=== PATIENT | female | born 1985 | race Caucasian/White ===

== ENCOUNTER 2017-08-13 06:37 | Inpatient (IN) | payer OTHER ==
[2017-08-13] MEDS: LACTATED RINGER'S 1000 ML IV (07:39)
[2017-08-13 08:17] LABS: HEMATOCRIT 36.8 % (36.0-47.0); HEMOGLOBIN 11.9 g/dl (12.0-15.5); MEAN CORPUSCULAR HEMOGLOBIN 28.3 pg (27.0-33.0); MEAN CORPUSCULAR HGB CONC 32.3 g/dl (32.0-36.5); MEAN CORPUSCULAR VOLUME 87.4 fl (80.0-96.0); PLATELET COUNT, AUTOMATED 176 10^3/uL (150-450); RED BLOOD COUNT 4.21 10^6/uL (4.00-5.40); WHITE BLOOD COUNT 10.2 10^3/uL (4.0-10.0)
[2017-08-13] MEDS: miSOPROStol 50 MCG 1/2 TAB (S0191) PO ×4 (08:25→21:00)
[2017-08-13] MEDS: LR 1,000 ML IV ×3 (09:25→23:21)
[2017-08-14] MEDS: miSOPROStol 50 MCG 1/2 TAB (S0191) PO ×6 (01:00→21:00)
[2017-08-14] MEDS ORDERED: LR 1,000 ML IV (06:44)
[2017-08-14] MEDS: LR 1,000 ML IV ×3 (07:21→23:57)
[2017-08-14] MEDS ORDERED: FENTANYL 2MCG/ML ROPIVACAINE 0.2% IN 0.9% NACL 200ML IVBAG As Ordered (07:26)
[2017-08-14] MEDS: ePHEDrine SULFATE 25 MG/5 ML(5MG/ML) SYRINGE IV (08:13)
[2017-08-14] MEDS ORDERED: ONDANSETRON 4MG/2ML VIAL (J2405) IV ×2 (08:15→19:30)
[2017-08-14] MEDS ORDERED: EPIDURAL COMMENT XX (08:15)
[2017-08-14] MEDS ORDERED: diphenhydrAMINE INJ 50MG/ML VIAL (J1200) IV (08:15)
[2017-08-14] MEDS ORDERED: EPIDURAL/PCA KEYS XX (08:15)
[2017-08-14] MEDS: FENTANYL/ROPIVACAINE/NACL BAG 200 ML EPIDURAL (08:15)
[2017-08-14] MEDS ORDERED: NALOXONE INJ 0.4 MG/1 ML VIAL (J2310) IV (08:15)
[2017-08-14] MEDS ORDERED: REFRIGERATOR IV KEYS XX (08:15)
[2017-08-14] MEDS: OXYTOCIN DRIP 30 UNITS in APPROPRIATE DILUENT 1 EA IV (09:01)
[2017-08-14] MEDS ORDERED: BICITRA 30ML SOLN UDC As Ordered (16:58)
[2017-08-14] MEDS ORDERED: ceFAZolin 2 GM/D5W 50 ML IV BAG (J0690 PER 500MG) As Ordered (16:58)
[2017-08-14] MEDS: BICITRA 30ML SOLN UDC PO (17:00)
[2017-08-14] MEDS ORDERED: ONDANSETRON 4MG/2ML VIAL (J2405) As Ordered (17:30)
[2017-08-14] MEDS ORDERED: dexameTHASONE 4 MG/ML 1ML VIAL (J1100) As Ordered (17:30)
[2017-08-14] MEDS ORDERED: fentaNYL 100 MCG/2 ML INJECTION (J3010) As Ordered (17:52)
[2017-08-14] MEDS ORDERED: MORPHINE PRES-FREE INJ 10 MG/10 ML VIAL (J2274) As Ordered (17:53)
[2017-08-14 18:16] LABS: CORD GAS ABE V -5.7; CORD GAS HCO3 V 21.7 MEQ/L; CORD GAS O2 SAT V 53.9 %; CORD GAS PCO2 V 49.4 mmHg; CORD GAS PH V 7.261 UNITS; CORD GAS PO2 V 26.4 mmHg; CORD GAS SBC V 18.8 MEQ/L; CORD GAS TCO2 V 23.2 MEQ/L
[2017-08-14 18:17] LABS: CORD GAS HCO3 A 24.4 MEQ/L; CORD GAS O2 SAT A 26.9 %; CORD GAS PCO2 A 52.7 mmHg; CORD GAS PH A 7.284 UNITS; CORD GAS PO2 A 16.3 mmHg; CORD GAS SBC A 20.2 MEQ/L
[2017-08-14] MEDS ORDERED: KETOROLAC 60 MG/2 ML VIAL (J1885) As Ordered (18:21)
[2017-08-14] MEDS ORDERED: PERCOCET 5MG/325MG TAB PO (19:00)
[2017-08-14] MEDS ORDERED: OXYTOCIN INJ 10 UNITS/ML VIAL (J2590) As Ordered (19:03)
[2017-08-14] MEDS ORDERED: fentaNYL 100 MCG/2 ML INJECTION (J3010) IV (19:30)
[2017-08-14] MEDS ORDERED: NALBUPHINE HCL 10 MG/ML AMP (J2300) IV (19:30)
[2017-08-14] MEDS ORDERED: PERCOCET 5MG/325MG TAB As Ordered (19:46)
[2017-08-14] MEDS: DOCUSATE SODIUM 100 MG CAP PO (21:36)
[2017-08-15] MEDS: LR 1,000 ML IV ×4 (00:03→11:15)
[2017-08-15] MEDS: KETOROLAC 30 MG/ML VIAL (J1885) IV ×4 (00:39→19:52)
[2017-08-15] MEDS: miSOPROStol 50 MCG 1/2 TAB (S0191) PO ×3 (00:40→09:00)
[2017-08-15] MEDS: FENTANYL/ROPIVACAINE/NACL BAG 200 ML EPIDURAL (03:00)
[2017-08-15 06:36] LABS: HEMOGLOBIN 10.3 g/dl (12.0-15.5); MEAN CORPUSCULAR HEMOGLOBIN 28.6 pg (27.0-33.0); MEAN CORPUSCULAR HGB CONC 33.2 g/dl (32.0-36.5); MEAN CORPUSCULAR VOLUME 86.1 fl (80.0-96.0); PLATELET COUNT, AUTOMATED 179 10^3/uL (150-450); RED CELL DISTRIBUTION WIDTH 15.9 % (11.5-14.5); WHITE BLOOD COUNT 20.1 10^3/uL (4.0-10.0)
[2017-08-15] MEDS: DOCUSATE SODIUM 100 MG CAP PO ×2 (10:00→19:52)
[2017-08-15] MEDS: PRENATAL VITAMINS CHEWABLE TABLET PO (10:00)
[2017-08-15] MEDS ORDERED: LR 500 ML IV (11:15)
[2017-08-16] MEDS: IBUPROFEN 800 MG TAB PO ×2 (03:00→11:38)
[2017-08-16] MEDS: MEASLES,MUMPS,RUBELLA VACCINE INJ (MMR-II) (90707) SC (07:21)
[2017-08-16] MEDS: RHOGAM 300 MCG (1500 IU) INJ (J2790) IM (07:21)
[2017-08-16] MEDS: PRENATAL VITAMINS CHEWABLE TABLET PO (07:45)
[2017-08-16] MEDS: DOCUSATE SODIUM 100 MG CAP PO (07:45)
[2017-08-16] MEDS: PERCOCET 5MG/325MG TAB PO (07:46)
== END 2017-08-16 16:00 | disposition home or self-care (01) | DRG 766 ==
LOC: M LDI 06:37 → M OBS 08-14 20:47
PROVIDERS: Obstetrics & Gynecology
PROC: 10D00Z1 Extraction of Products of Conception, Low, Open Approach (ICD-10-PCS; principal; 2017-08-14 17:20)
PROC: 3E0P7VZ Introduction of Hormone into Female Reproductive, Via Natural or Artificial Opening (ICD-10-PCS; 2017-08-14 17:20)
DX: O48.0 Post-term pregnancy (principal); Z37.0 Single live birth; Z3A.41 41 weeks gestation of pregnancy; O32.4XX0 Maternal care for high head at term, not applicable or unspecified; E03.9 Hypothyroidism, unspecified; O99.284 Endocrine, nutritional and metabolic diseases complicating childbirth; E66.9 Obesity, unspecified; O99.214 Obesity complicating childbirth

== ENCOUNTER 2017-08-20 12:12 | Emergency (ER) | payer OTHER ==
[2017-08-20] MEDS: NS 1,000 ML IV (14:34)
[2017-08-20 14:36] LABS: BASO % 0.2 % (0.0-1.0); EOS # 0.4 10^3/uL (0.0-0.50); EOS % 3.8 % (0.0-3.0); HEMATOCRIT 30.9 % (36.0-47.0); HEMOGLOBIN 10.1 g/dl (12.0-15.5); IMMATURE GRANULOCYTE % 1.7 % (0-3.0); LYMPH # 1.6 10^3/uL (1.5-4.5); LYMPH % 17.7 % (24.0-44.0); MEAN CORPUSCULAR HEMOGLOBIN 28.4 pg (27.0-33.0); MEAN CORPUSCULAR HGB CONC 32.7 g/dl (32.0-36.5); MEAN CORPUSCULAR VOLUME 86.8 fl (80.0-96.0); MONO # 0.7 10^3/uL (0.0-0.8); MONO % 7.5 % (0.0-5.0); NEUTROPHILS # 6.4 10^3/uL (1.8-7.7); NEUTROPHILS % 69.1 % (36.0-66.0); PLATELET COUNT, AUTOMATED 317 10^3/uL (150-450); RED BLOOD COUNT 3.56 10^6/uL (4.00-5.40); WHITE BLOOD COUNT 9.3 10^3/uL (4.0-10.0)
[2017-08-20] MEDS: GASTROGRAFIN SOLUTION 30ML PO ×2 (14:45→15:42)
[2017-08-20 15:00] LABS: ALBUMIN 2.3 GM/DL (3.2-5.2); ALBUMIN/GLOBULIN RATIO 0.59 (1.00-1.93); ALKALINE PHOSPHATASE 103 U/L (45-117); ALT/SGPT 52 U/L (12-78); ANION GAP 9 MEQ/L (8-16); AST/SGOT 17 U/L (7-37); BILIRUBIN,DIRECT 0.2 MG/DL (0.0-0.2); BILIRUBIN,TOTAL 0.4 MG/DL (0.2-1.0); BLOOD UREA NITROGEN 9 MG/DL (7-18); CALCIUM LEVEL 8.4 MG/DL (8.5-10.1); CARBON DIOXIDE LEVEL 23 MEQ/L (21-32); CHLORIDE LEVEL 111 MEQ/L (98-107); CREATININE FOR GFR 0.69 MG/DL (0.55-1.30); GLOMERULAR FILTRATION RATE > 60.0 (>60); GLUCOSE, FASTING 66 MG/DL (70-100); SODIUM LEVEL 143 MEQ/L (136-145); TOTAL PROTEIN 6.2 GM/DL (6.4-8.2)
[2017-08-20 15:01] LABS: LACTIC ACID SEPSIS PROTOCOL 0.6 MMOL/L (0.4-2.0)
[2017-08-20 15:02] LABS: KETONE, URINE AUTO RFX NEGATIVE (NEGATIVE); NITRITE, URINE AUTO RFX NEGATIVE (NEGATIVE); RBC, URINE AUTO RFX 1 /HPF (0-3); SPECIFIC GRAVITY UR AUTO RFX 1.005 (1.002-1.035); SQUAM EPITHELIAL CELL UR AURFX 1 /HPF (0-6)
[2017-08-20 15:06] LABS: LEUKOCYTE ESTERASE UR AUTO RFX 1+ (NEGATIVE); WBC, URINE AUTO RFX 12 /HPF (0-3)
[2017-08-20] MEDS: CEPHALEXIN 500 MG CAP PO (17:15)
== END 2017-08-20 17:29 | disposition home or self-care (01) ==
LOC: M ED 12:12
DX: O98.83 Other maternal infectious and parasitic diseases complicating the puerperium (principal); N30.00 Acute cystitis without hematuria; O99.285 Endocrine, nutritional and metabolic diseases complicating the puerperium; E07.9 Disorder of thyroid, unspecified; Z91.048 Other nonmedicinal substance allergy status; Z79.899 Other long term (current) drug therapy
CPT/HCPCS: 76856

== ENCOUNTER 2017-08-25 14:09 | Inpatient (IN) | payer OTHER ==
[2017-08-24] MEDS: LR 1,000 ML IV (23:30)
[2017-08-25] MEDS: PRENATAL VITAMINS CHEWABLE TABLET PO (09:00)
[2017-08-25] MEDS: LACTATED RINGER'S 1000 ML IV (15:15)
[2017-08-25 15:54] LABS: HEMATOCRIT 30.2 % (36.0-47.0); HEMOGLOBIN 9.8 g/dl (12.0-15.5); MEAN CORPUSCULAR HEMOGLOBIN 27.7 pg (27.0-33.0); MEAN CORPUSCULAR HGB CONC 32.5 g/dl (32.0-36.5); MEAN CORPUSCULAR VOLUME 85.3 fl (80.0-96.0); PLATELET COUNT, AUTOMATED 384 10^3/uL (150-450); RED BLOOD COUNT 3.54 10^6/uL (4.00-5.40); RED CELL DISTRIBUTION WIDTH 16.3 % (11.5-14.5); WHITE BLOOD COUNT 14.7 10^3/uL (4.0-10.0)
[2017-08-25 15:57] LABS: ADD MANUAL DIFFER YES; DIFF SLIDE NUMBER 328; POSITIVE MORPH POS FLAG
[2017-08-25] MEDS: ACETAMINOPHEN TAB 650MG DOSE (2X325MG) PO (16:11)
[2017-08-25 16:15] LABS: LACTIC ACID SEPSIS PROTOCOL 1.8 MMOL/L (0.4-2.0)
[2017-08-25 16:18] LABS: BANDS 1 % (< 11); LYMPHOCYTES 9 % (16-52); MONOCYTES 3 % (0-8); NEUTROPHILS 87 % (35-75)
[2017-08-25 16:21] LABS: PLATELET ESTIMATE NORMAL (NORMAL); TOXIC GRANULATION 1+; TOXIC VACUOLATION 1+
[2017-08-25 16:28] LABS: ALBUMIN 2.2 GM/DL (3.2-5.2); ALBUMIN/GLOBULIN RATIO 0.52 (1.00-1.93); ALKALINE PHOSPHATASE 116 U/L (45-117); ALT/SGPT 28 U/L (12-78); ANION GAP 11 MEQ/L (8-16); AST/SGOT 22 U/L (7-37); BILIRUBIN,TOTAL 0.4 MG/DL (0.2-1.0); BLOOD UREA NITROGEN 8 MG/DL (7-18); CARBON DIOXIDE LEVEL 20 MEQ/L (21-32); CHLORIDE LEVEL 104 MEQ/L (98-107); CREATININE FOR GFR 0.82 MG/DL (0.55-1.30); GLOMERULAR FILTRATION RATE > 60.0 (>60); GLUCOSE, FASTING 73 MG/DL (70-100); PHOSPHORUS LEVEL 2.1 MG/DL (2.5-4.9); POTASSIUM SERUM 4.1 MEQ/L (3.5-5.1); SODIUM LEVEL 135 MEQ/L (136-145); TOTAL PROTEIN 6.4 GM/DL (6.4-8.2)
[2017-08-25] MEDS: LR 1,000 ML IV (16:50)
[2017-08-25] MEDS: PIPERACILLIN/TAZOBACTAM SOD 3.375 GM in D5W MINI-BAG PLUS 50 ML IV ×2 (16:50→21:42)
[2017-08-25] MEDS: VANCOMYCIN HCL 1,000 MG, VIAL MATE ADAPTER 1 EACH in D5W 250 ML IV ×2 (18:01→19:53)
[2017-08-25] MEDS: IBUPROFEN 800 MG TAB PO (21:31)
[2017-08-25] MEDS: LANOLIN HYDROUS OINT 30GM TUBE TOP (21:31)
[2017-08-26] MEDS: PIPERACILLIN/TAZOBACTAM SOD 3.375 GM in D5W MINI-BAG PLUS 50 ML IV ×3 (03:05→22:00)
[2017-08-26] MEDS: VANCOMYCIN HCL 1,000 MG, VIAL MATE ADAPTER 1 EACH in D5W 250 ML IV ×4 (04:00→22:00)
[2017-08-26 06:59] LABS: HEMATOCRIT 27.8 % (36.0-47.0); HEMOGLOBIN 9.3 g/dl (12.0-15.5); MEAN CORPUSCULAR HEMOGLOBIN 27.9 pg (27.0-33.0); MEAN CORPUSCULAR HGB CONC 33.5 g/dl (32.0-36.5); MEAN CORPUSCULAR VOLUME 83.5 fl (80.0-96.0); PLATELET COUNT, AUTOMATED 383 10^3/uL (150-450); RED BLOOD COUNT 3.33 10^6/uL (4.00-5.40); RED CELL DISTRIBUTION WIDTH 16.7 % (11.5-14.5); WHITE BLOOD COUNT 10.6 10^3/uL (4.0-10.0)
[2017-08-26] MEDS: PRENATAL VITAMINS CHEWABLE TABLET PO (09:05)
[2017-08-26] MEDS: LANOLIN HYDROUS OINT 30GM TUBE TOP ×3 (09:06→22:00)
[2017-08-26] MEDS: IBUPROFEN 800 MG TAB PO (10:00)
[2017-08-26] MEDS ORDERED: PIPERACILLIN/TAZOBACTAM SOD 3.375 GM in D5W MINI-BAG PLUS 50 ML IV (11:15)
[2017-08-26] MEDS ORDERED: VANCOMYCIN HCL 2,000 MG, VIAL MATE ADAPTER 1 EACH in D5W 250 ML IV (11:15)
[2017-08-26] MEDS: LR 1,000 ML IV ×2 (22:00)
[2017-08-27] MEDS: PIPERACILLIN/TAZOBACTAM SOD 3.375 GM in D5W MINI-BAG PLUS 50 ML IV ×4 (02:46→22:27)
[2017-08-27] MEDS: VANCOMYCIN HCL 1,000 MG, VIAL MATE ADAPTER 1 EACH in D5W 250 ML IV ×4 (04:24→19:51)
[2017-08-27] MEDS: PRENATAL VITAMINS CHEWABLE TABLET PO (08:48)
[2017-08-27] MEDS: LANOLIN HYDROUS OINT 30GM TUBE TOP ×3 (08:49→22:28)
[2017-08-27] MEDS: LR 1,000 ML IV ×3 (10:57→22:45)
[2017-08-27 11:00] LABS: BASO % 0.5 % (0.0-1.0); EOS # 0.2 10^3/uL (0.0-0.50); EOS % 2.3 % (0.0-3.0); HEMATOCRIT 28.8 % (36.0-47.0); HEMOGLOBIN 9.3 g/dl (12.0-15.5); IMMATURE GRANULOCYTE % 1.5 % (0-3.0); LYMPH # 1.4 10^3/uL (1.5-4.5); LYMPH % 17.2 % (24.0-44.0); MEAN CORPUSCULAR HEMOGLOBIN 27.6 pg (27.0-33.0); MEAN CORPUSCULAR HGB CONC 32.3 g/dl (32.0-36.5); MEAN CORPUSCULAR VOLUME 85.5 fl (80.0-96.0); MONO # 0.5 10^3/uL (0.0-0.8); MONO % 6.2 % (0.0-5.0); NEUTROPHILS # 5.8 10^3/uL (1.8-7.7); NEUTROPHILS % 72.3 % (36.0-66.0); PLATELET COUNT, AUTOMATED 430 10^3/uL (150-450); RED BLOOD COUNT 3.37 10^6/uL (4.00-5.40); RED CELL DISTRIBUTION WIDTH 16.8 % (11.5-14.5)
[2017-08-27 15:59] LABS: VANCOMYCIN LEVEL TROUGH 14.1 UG/ML (10.0-20.0)
[2017-08-27] MEDS: ACETAMINOPHEN TAB 650MG DOSE (2X325MG) PO (17:36)
[2017-08-27] MEDS ORDERED: ISOVUE-370 76% 100ML VIAL (Q9967) As Ordered (21:41)
[2017-08-27 22:07] LABS: HEMATOCRIT 28.1 % (36.0-47.0); HEMOGLOBIN 9.1 g/dl (12.0-15.5); MEAN CORPUSCULAR HEMOGLOBIN 27.5 pg (27.0-33.0); MEAN CORPUSCULAR HGB CONC 32.4 g/dl (32.0-36.5); MEAN CORPUSCULAR VOLUME 84.9 fl (80.0-96.0); PLATELET COUNT, AUTOMATED 497 10^3/uL (150-450); RED BLOOD COUNT 3.31 10^6/uL (4.00-5.40); RED CELL DISTRIBUTION WIDTH 16.7 % (11.5-14.5); WHITE BLOOD COUNT 10.2 10^3/uL (4.0-10.0)
[2017-08-27 22:38] LABS: ALBUMIN 1.7 GM/DL (3.2-5.2); ALBUMIN/GLOBULIN RATIO 0.36 (1.00-1.93); ALKALINE PHOSPHATASE 103 U/L (45-117); ALT/SGPT 52 U/L (12-78); ANION GAP 8 MEQ/L (8-16); AST/SGOT 27 U/L (7-37); BILIRUBIN,TOTAL 0.3 MG/DL (0.2-1.0); BLOOD UREA NITROGEN 8 MG/DL (7-18); CALCIUM LEVEL 7.9 MG/DL (8.5-10.1); CARBON DIOXIDE LEVEL 24 MEQ/L (21-32); CHLORIDE LEVEL 111 MEQ/L (98-107); CREATININE FOR GFR 0.82 MG/DL (0.55-1.30); GLOMERULAR FILTRATION RATE > 60.0 (>60); GLUCOSE, FASTING 124 MG/DL (70-100); POTASSIUM SERUM 3.2 MEQ/L (3.5-5.1); SODIUM LEVEL 143 MEQ/L (136-145); TOTAL PROTEIN 6.4 GM/DL (6.4-8.2)
[2017-08-28] MEDS: PIPERACILLIN/TAZOBACTAM SOD 3.375 GM in D5W MINI-BAG PLUS 50 ML IV ×4 (03:35→20:23)
[2017-08-28] MEDS: VANCOMYCIN HCL 1,000 MG, VIAL MATE ADAPTER 1 EACH in D5W 250 ML IV ×4 (04:40→18:20)
[2017-08-28] MEDS: LANOLIN HYDROUS OINT 30GM TUBE TOP ×3 (08:23→20:44)
[2017-08-28] MEDS ORDERED: MIDAZOLAM INJ 2 MG/2 ML VIAL (J2250) As Ordered (09:13)
[2017-08-28] MEDS ORDERED: ROCURONIUM BROMIDE 50 MG/5 ML VIAL As Ordered (09:13)
[2017-08-28] MEDS ORDERED: LIDOCAINE 2% INJ 100 MG/5 ML SDV (FOR ANES.) As Ordered (09:13)
[2017-08-28] MEDS ORDERED: PROPOFOL 200 MG/20 ML VIAL As Ordered ×2 (09:13→10:35)
[2017-08-28] MEDS ORDERED: fentaNYL 100 MCG/2 ML INJECTION (J3010) As Ordered (09:13)
[2017-08-28] MEDS: BUPIVACAINE HCL 0.5% 30 ML VIAL As Ordered (10:48)
[2017-08-28] MEDS ORDERED: fentaNYL 100 MCG/2 ML INJECTION (J3010) IV (11:15)
[2017-08-28] MEDS ORDERED: PERCOCET 5MG/325MG TAB PO (11:15)
[2017-08-28] MEDS: LR 1,000 ML IV ×4 (12:24→14:47)
[2017-08-28] MEDS: PRENATAL VITAMINS CHEWABLE TABLET PO (14:47)
[2017-08-29] MEDS: PIPERACILLIN/TAZOBACTAM SOD 3.375 GM in D5W MINI-BAG PLUS 50 ML IV ×4 (02:05→20:04)
[2017-08-29] MEDS: VANCOMYCIN HCL 1,000 MG, VIAL MATE ADAPTER 1 EACH in D5W 250 ML IV ×4 (03:20→17:46)
[2017-08-29] MEDS: LANOLIN HYDROUS OINT 30GM TUBE TOP ×3 (08:17→20:04)
[2017-08-29] MEDS: PRENATAL VITAMINS CHEWABLE TABLET PO (08:17)
[2017-08-29] MEDS: LR 1,000 ML IV ×3 (08:29→22:45)
[2017-08-29] MEDS: LEVOTHYROXINE 25MCG TABLET (0.025MG) PO (12:10)
[2017-08-29 15:36] LABS: VANCOMYCIN LEVEL TROUGH 21.2 UG/ML (10.0-20.0)
[2017-08-30] MEDS: PIPERACILLIN/TAZOBACTAM SOD 3.375 GM in D5W MINI-BAG PLUS 50 ML IV ×2 (02:03→08:13)
[2017-08-30] MEDS: VANCOMYCIN HCL 500 MG in D5W MINI-BAG PLUS 100 ML IV (02:03)
[2017-08-30] MEDS: VANCOMYCIN HCL 1,000 MG, VIAL MATE ADAPTER 1 EACH in D5W 250 ML IV (02:03)
[2017-08-30] MEDS: LR 1,000 ML IV (06:45)
[2017-08-30] MEDS: LEVOTHYROXINE 25MCG TABLET (0.025MG) PO (07:00)
[2017-08-30] MEDS: LANOLIN HYDROUS OINT 30GM TUBE TOP ×3 (08:13→21:36)
[2017-08-30] MEDS: PRENATAL VITAMINS CHEWABLE TABLET PO (08:19)
[2017-08-30] MEDS: BACTRIM 160MG/800MG DS TAB PO ×2 (09:27→21:35)
[2017-08-30] MEDS ORDERED: SLF 3 ML SYR IV (15:45)
[2017-08-30 18:18] LABS: HEMATOCRIT 30.6 % (36.0-47.0); HEMOGLOBIN 9.7 g/dl (12.0-15.5); MEAN CORPUSCULAR HEMOGLOBIN 27.2 pg (27.0-33.0); MEAN CORPUSCULAR HGB CONC 31.7 g/dl (32.0-36.5); PLATELET COUNT, AUTOMATED 594 10^3/uL (150-450); RED BLOOD COUNT 3.56 10^6/uL (4.00-5.40); RED CELL DISTRIBUTION WIDTH 16.7 % (11.5-14.5); WHITE BLOOD COUNT 8.7 10^3/uL (4.0-10.0)
[2017-08-30 18:21] LABS: ADD MANUAL DIFFER YES; DIFF SLIDE NUMBER 136; POS COUNT POS FLAG; POSITIVE MORPH POS FLAG
[2017-08-30 18:34] LABS: ERYTHROCYTE SEDIMENTATION RATE 70 mm/hr (0-20)
[2017-08-30 18:44] LABS: C REACTIVE PROTEIN QUANTITATIV 2.31 MG/DL (0.00-0.30)
[2017-08-30 18:47] LABS: ALBUMIN/GLOBULIN RATIO 0.41 (1.00-1.93); ALKALINE PHOSPHATASE 89 U/L (45-117); ALT/SGPT 35 U/L (12-78); ANION GAP 6 MEQ/L (8-16); AST/SGOT 13 U/L (7-37); BILIRUBIN,TOTAL 0.3 MG/DL (0.2-1.0); BLOOD UREA NITROGEN 9 MG/DL (7-18); CALCIUM LEVEL 8.1 MG/DL (8.5-10.1); CARBON DIOXIDE LEVEL 24 MEQ/L (21-32); CHLORIDE LEVEL 114 MEQ/L (98-107); CREATININE FOR GFR 0.82 MG/DL (0.55-1.30); GLOMERULAR FILTRATION RATE > 60.0 (>60); GLUCOSE, FASTING 79 MG/DL (70-100); MAGNESIUM LEVEL 2.4 MG/DL (1.8-2.4); POTASSIUM SERUM 3.9 MEQ/L (3.5-5.1); SODIUM LEVEL 144 MEQ/L (136-145); TOTAL PROTEIN 6.9 GM/DL (6.4-8.2)
[2017-08-30 19:16] LABS: ATYPICAL LYMPH 1 % (0-5); EOSINOPHILS 3 % (0-5); LYMPHOCYTES 22 % (16-52); METAMYELOCYTES 2 % (0-0); MONOCYTES 9 % (0-8); MYELOCYTES 2 % (0-0); NEUTROPHILS 61 % (35-75)
[2017-08-30 19:17] LABS: ANISOCYTOSIS 2+; HYPOCHROMASIA 1+; PLATELET ESTIMATE INCREASED (NORMAL); POLYCHROMASIA 1+
[2017-08-30] MEDS: SLF 3 ML SYR IV (21:36)
[2017-08-31] MEDS: LEVOTHYROXINE 25MCG TABLET (0.025MG) PO (05:32)
[2017-08-31] MEDS: SLF 3 ML SYR IV ×3 (05:33→20:21)
[2017-08-31 07:05] LABS: HEMATOCRIT 30.9 % (36.0-47.0); HEMOGLOBIN 9.9 g/dl (12.0-15.5); MEAN CORPUSCULAR HEMOGLOBIN 27.7 pg (27.0-33.0); MEAN CORPUSCULAR VOLUME 86.3 fl (80.0-96.0); PLATELET COUNT, AUTOMATED 649 10^3/uL (150-450); RED BLOOD COUNT 3.58 10^6/uL (4.00-5.40); RED CELL DISTRIBUTION WIDTH 16.8 % (11.5-14.5)
[2017-08-31 07:23] LABS: ANION GAP 8 MEQ/L (8-16); BLOOD UREA NITROGEN 8 MG/DL (7-18); CALCIUM LEVEL 8.4 MG/DL (8.5-10.1); CARBON DIOXIDE LEVEL 22 MEQ/L (21-32); CHLORIDE LEVEL 115 MEQ/L (98-107); CREATININE FOR GFR 0.89 MG/DL (0.55-1.30); GLOMERULAR FILTRATION RATE > 60.0 (>60); GLUCOSE, FASTING 75 MG/DL (70-100); POTASSIUM SERUM 4.1 MEQ/L (3.5-5.1); SODIUM LEVEL 145 MEQ/L (136-145)
[2017-08-31] MEDS: PRENATAL VITAMINS CHEWABLE TABLET PO (08:46)
[2017-08-31] MEDS: BACTRIM 160MG/800MG DS TAB PO ×2 (08:46→20:20)
[2017-08-31] MEDS: LACTOBACILLUS ACIDOPHILUS CAP (BACID) PO ×3 (09:17→20:20)
[2017-08-31] MEDS: LANOLIN HYDROUS OINT 30GM TUBE TOP ×3 (09:18→20:21)
[2017-08-31 09:24] LABS: FREE T4 1.91 NG/DL (0.76-1.46)
[2017-09-01] MEDS: LEVOTHYROXINE 25MCG TABLET (0.025MG) PO (05:41)
[2017-09-01] MEDS: SLF 3 ML SYR IV ×3 (05:42→20:21)
[2017-09-01 08:29] LABS: HEMATOCRIT 34.1 % (36.0-47.0); HEMOGLOBIN 10.8 g/dl (12.0-15.5); MEAN CORPUSCULAR HEMOGLOBIN 27.7 pg (27.0-33.0); MEAN CORPUSCULAR HGB CONC 31.7 g/dl (32.0-36.5); MEAN CORPUSCULAR VOLUME 87.4 fl (80.0-96.0); PLATELET COUNT, AUTOMATED 669 10^3/uL (150-450); RED CELL DISTRIBUTION WIDTH 17.4 % (11.5-14.5)
[2017-09-01 08:36] LABS: ADD MANUAL DIFFER YES; DIFF SLIDE NUMBER 123; POS COUNT POS FLAG; POSITIVE MORPH POS FLAG
[2017-09-01 09:00] LABS: ALBUMIN 2.4 GM/DL (3.2-5.2); ALBUMIN/GLOBULIN RATIO 0.57 (1.00-1.93); ALKALINE PHOSPHATASE 89 U/L (45-117); ALT/SGPT 30 U/L (12-78); ANION GAP 10 MEQ/L (8-16); AST/SGOT 17 U/L (7-37); BILIRUBIN,TOTAL 0.4 MG/DL (0.2-1.0); BLOOD UREA NITROGEN 9 MG/DL (7-18); CALCIUM LEVEL 8.6 MG/DL (8.5-10.1); CARBON DIOXIDE LEVEL 22 MEQ/L (21-32); CHLORIDE LEVEL 113 MEQ/L (98-107); CREATININE FOR GFR 1.01 MG/DL (0.55-1.30); GLOMERULAR FILTRATION RATE > 60.0 (>60); GLUCOSE, FASTING 91 MG/DL (70-100); MAGNESIUM LEVEL 2.5 MG/DL (1.8-2.4); SODIUM LEVEL 145 MEQ/L (136-145); TOTAL PROTEIN 6.6 GM/DL (6.4-8.2)
[2017-09-01] MEDS: PRENATAL VITAMINS CHEWABLE TABLET PO (09:21)
[2017-09-01] MEDS: LACTOBACILLUS ACIDOPHILUS CAP (BACID) PO ×3 (09:21→20:19)
[2017-09-01] MEDS: BACTRIM 160MG/800MG DS TAB PO ×2 (09:22→20:19)
[2017-09-01] MEDS: LANOLIN HYDROUS OINT 30GM TUBE TOP ×3 (09:22→20:21)
[2017-09-01 09:54] LABS: BANDS 1 % (< 11); EOSINOPHILS 4 % (0-5); LYMPHOCYTES 24 % (16-52); METAMYELOCYTES 2 % (0-0); MONOCYTES 9 % (0-8); MYELOCYTES 2 % (0-0); NEUTROPHILS 58 % (35-75); PLATELET ESTIMATE INCREASED (NORMAL)
[2017-09-01 09:55] LABS: ANISOCYTOSIS 1+; MICROCYTOSIS 1+
[2017-09-02 00:07] LABS: Lyme Disease IgG/IgM Antibodie <0.91 ISR (0.00-0.90); Lyme Disease IgM Ab Quantitati <0.80 index (0.00-0.79)
[2017-09-02] MEDS: LEVOTHYROXINE 25MCG TABLET (0.025MG) PO (05:24)
[2017-09-02] MEDS: SLF 3 ML SYR IV (05:27)
[2017-09-02 05:54] LABS: BASO # 0.1 10^3/uL (0.0-0.2); BASO % 0.9 % (0.0-1.0); EOS # 0.2 10^3/uL (0.0-0.50); EOS % 2.8 % (0.0-3.0); HEMATOCRIT 31.9 % (36.0-47.0); IMMATURE GRANULOCYTE % 4.3 % (0-3.0); LYMPH # 2.1 10^3/uL (1.5-4.5); LYMPH % 26.7 % (24.0-44.0); MEAN CORPUSCULAR HEMOGLOBIN 27.4 pg (27.0-33.0); MEAN CORPUSCULAR HGB CONC 31.3 g/dl (32.0-36.5); MEAN CORPUSCULAR VOLUME 87.4 fl (80.0-96.0); MONO # 0.4 10^3/uL (0.0-0.8); MONO % 5.1 % (0.0-5.0); NEUTROPHILS # 4.7 10^3/uL (1.8-7.7); NEUTROPHILS % 60.2 % (36.0-66.0); PLATELET COUNT, AUTOMATED 593 10^3/uL (150-450); RED BLOOD COUNT 3.65 10^6/uL (4.00-5.40); RED CELL DISTRIBUTION WIDTH 17.2 % (11.5-14.5); WHITE BLOOD COUNT 7.9 10^3/uL (4.0-10.0)
[2017-09-02 06:15] LABS: ALBUMIN 2.2 GM/DL (3.2-5.2); ALBUMIN/GLOBULIN RATIO 0.51 (1.00-1.93); ALKALINE PHOSPHATASE 76 U/L (45-117); ALT/SGPT 26 U/L (12-78); ANION GAP 8 MEQ/L (8-16); AST/SGOT 9 U/L (7-37); BILIRUBIN,TOTAL 0.2 MG/DL (0.2-1.0); BLOOD UREA NITROGEN 14 MG/DL (7-18); CALCIUM LEVEL 8.4 MG/DL (8.5-10.1); CARBON DIOXIDE LEVEL 23 MEQ/L (21-32); CHLORIDE LEVEL 115 MEQ/L (98-107); GLOMERULAR FILTRATION RATE > 60.0 (>60); GLUCOSE, FASTING 88 MG/DL (70-100); MAGNESIUM LEVEL 2.4 MG/DL (1.8-2.4); POTASSIUM SERUM 4.5 MEQ/L (3.5-5.1); SODIUM LEVEL 146 MEQ/L (136-145); TOTAL PROTEIN 6.5 GM/DL (6.4-8.2)
[2017-09-02] MEDS: PRENATAL VITAMINS CHEWABLE TABLET PO (09:28)
[2017-09-02] MEDS: BACTRIM 160MG/800MG DS TAB PO (09:28)
[2017-09-02] MEDS: LACTOBACILLUS ACIDOPHILUS CAP (BACID) PO (09:28)
== END 2017-09-02 10:47 | disposition home or self-care (01) | DRG 769 ==
LOC: M PCU 08-30 18:40 → M PSY 14:09 → M PED 14:51
PROC: 0J980ZZ Drainage of Abdomen Subcutaneous Tissue and Fascia, Open Approach (ICD-10-PCS; principal; 2017-08-28 08:00)
DX: O91.12 Abscess of breast associated with the puerperium (principal); O86.22 Infection of bladder following delivery; Z79.899 Other long term (current) drug therapy; B95.61 Methicillin susceptible Staphylococcus aureus infection as the cause of diseases classified elsewhere; B95.5 Unspecified streptococcus as the cause of diseases classified elsewhere; O86.0 Infection of obstetric surgical wound; E03.9 Hypothyroidism, unspecified; O99.285 Endocrine, nutritional and metabolic diseases complicating the puerperium; R00.1 Bradycardia, unspecified